=== PATIENT | male | born 1990 | race Caucasian/White ===

== ENCOUNTER 2022-08-20 20:00 | Emergency (ER) | payer OTHER, BC ==
[~2022-08-20] VITALS: Ht 180.3 cm; Wt 86.2 kg
[~2022-08-20 20:00] MED LIST: CEPHALEXIN500 MG PO; NAPROXEN500 MG PO; NORCO 5-325 TA1 EACH PO
[2022-08-20] MEDS ORDERED: TRAMADOL HCL50 MG PO (20:40)
[2022-08-20 21:12] VITALS: BP 128/83
== END 2022-08-20 21:13 | disposition home or self-care (01) ==
LOC: ED 20:00
DX: M25.462 Effusion, left knee (principal); V86.99XA Unspecified occupant of other special all-terrain or other off-road motor vehicle injured in nontraffic accident, initial encounter
CPT/HCPCS: 73560; 99283-25; A9270